=== PATIENT | female | born 1970 | race American Indian/Alaskan Native ===

== ENCOUNTER 2018-10-28 12:03 | Emergency (ER) | payer OTHER ==
--- NOTE | 2018-10-28 12:11 | Emergency Department Report ---
Blank Doc - Documentation Documentation: This is a 48-year-old female that presents with dizziness and near syncope. P atient stated earlier today started to have left sided chest pain and arm pain. Denies any headache or chest pain right now. Denies one sided weakness or blurry vision or visual changes. Exam: neuro exam within normal limits. No slurred speech. Normal strength with no one sided weakness. This initial assessment/diagnostic orders/clinical plan/treatment(s) is/are subject to change based on patient's health status, clinical progression and re- assessment by fellow clinical providers in the ED. Further treatment and workup at subsequent clinical providers discretion. Patient/guardians urged not to elope from the ED as their condition may be serious if not clinically assessed and managed. Initial orders include: 1- Patient sent to MAIN ED for further evaluation and treatment 2- labs 3- EKG
[2018-10-28] MEDS ORDERED: NACL 0.9% 1000 ML 1,000 ML IV ONE (12:23)
--- NOTE | 2018-10-28 12:55 | XRay Report ---
[facility] [address] [place] [address] XRay Report Signed Patient: MARIA C FLORES MR#: [id number] 4 : 1970 Acct:[id number] Age/Sex: 48 / F ADM Date: 10/28/18 Loc: ED Attending Dr: Ordering Physician: LAMINE CULP NP Date of Service: 10/28/18 Procedure(s): XR chest routine 2V Accession Number(s): [id number] cc: LAMINE CULP NP Fluoro Time In Minutes: CHEST 2 VIEWS INDICATION / CLINICAL INFORMATION: Chest Pain. COMPARISON: None available. FINDINGS: SUPPORT DEVICES: None. HEART / MEDIASTINUM: No significant abnormality. LUNGS / PLEURA: No significant pulmonary or pleural abnormality. No pneumothorax. ADDITIONAL FINDINGS: No significant additional findings. IMPRESSION: 1. No acute findings. Signer Name: Pola Tolbert MD Signed: 10/28/2018 12:50 PM Workstation Name: [id number] Transcribed By: REF Dictated By: EMIL WILLIS MD Electronically Authenticated By: EMIL WILLIS MD Signed Date/Time: 10/28/18 1150 DD/ 1150 TD/TT:
[2018-10-28 13:14] LABS: Basophils % (Auto) 0.5 % (0.0-1.8); Eosinophils % (Auto) 0.8 % (0.0-4.3); Hemoglobin 12.2 gm/dl (10.1-14.3); Lymphocytes # (Auto) 2.3 K/mm3 (1.2-5.4); Lymphocytes % (Auto) 40.1 % (13.4-35.0); Mean Corpuscular HGB Conc 34 % (30-34); Mean Corpuscular Volume 92 fl (79-97); Monocytes # (Auto) 0.4 K/mm3 (0.0-0.8); Platelet Count 190 K/mm3 (140-440); Red Blood Count 3.92 M/mm3 (3.65-5.03); Red Cell Distribution Width 13.3 % (13.2-15.2)
[2018-10-28 13:18] LABS: Alanine Aminotransferase 20 units/L (7-56); Albumin 4.3 g/dL (3.9-5); BUN/Creatinine Ratio 14; Blood Urea Nitrogen 11 mg/dL (7-17); Calcium 9.1 mg/dL (8.4-10.2); Hemolysis Index 0
[2018-10-28 13:28] LABS: INR 1.02 (0.87-1.13)
[2018-10-28 13:29] LABS: Partial Thromboplastin Time 33.7 Sec. (24.2-36.6)
--- NOTE | 2018-10-28 13:55 | Emergency Department Report ---
ED Chest Pain HPI - General Chief Complaint: Dizziness Stated Complaint: DIZZY/LEFT SIDE DISCOMFORT Time Seen by Provider: 10/28/18 12:11 Source: patient Mode of arrival: Ambulatory Limitations: No Limitations - History of Present Illness Initial Comments: Patient is a 48-year-old female who is here secondary to episodes of chest discomfort with near syncopal episode. Patient states that when she arrived to work today she states she had 2 distinct episodes where she felt some left-sided chest discomfort with some numbness and tingling to her left hand. Patient states this was followed by some near syncope. Patient states she had a mild headache as well. Patient denies any weakness in arms or legs. Patient states that one month ago while cleaning with a new And a electrode cleaner she did have episodes some dizziness and sinus discomfort.. Patient had no chest pain at that time. With the patient had the dizziness today she states that it was different from the sensation she had when she used a cleaning product however the patient is hoping that her exposure to the cleaning product a few days ago is the cause of why she feels bad today. Again the patient's symptoms are different. Patient states that the dizziness is more consistent with a feeling as though she is going to pass out as opposed to a spinning sensation or vertigo. Patient denies any fevers chills cough cold congestion nausea vomiting at this time. - Related Data Allergies Allergy/AdvReac Type Severity Reaction Status Date / Time No Known Allergies Allergy Unverified 10/28/18 12:11 Heart Score - HEART Score History: Slightly suspicious EKG: Normal Age: 45-65 Risk factors: No known risk factors Troponin: < normal limit HEART Score: 1 ED Review of Systems ROS: Stated complaint: DIZZY/LEFT SIDE DISCOMFORT Other details as noted in HPI Comment: All other systems reviewed and negative ED Past Medical Hx - Past Medical History Previous Medical History?: Yes Additional medical history: rheumatic fever as child. anemia in - Surgical History Past Surgical History?: Yes Additional Surgical History: (2014 for twins) - Social History Smoking Status: Never Smoker Substance Use Type: None ED Physical Exam - General Limitations: No Limitations General appearance: alert, in no apparent distress - Head Head exam: Present: atraumatic, normocephalic - Eye Eye exam: Present: normal appearance, PERRL, EOMI - ENT ENT exam: Present: mucous membranes moist - Neck Neck exam: Present: normal inspection - Respiratory Respiratory exam: Present: normal lung sounds bilaterally. Absent: respiratory distress, wheezes, rales, rhonchi - Cardiovascular Cardiovascular Exam: Present: regular rate, normal rhythm. Absent: systolic murmur, diastolic murmur, rubs, gallop - GI/Abdominal GI/Abdominal exam: Present: soft, normal bowel sounds. Absent: distended, tenderness, guarding, rebound - Extremities Exam Extremities exam: Present: normal inspection - Back Exam Back exam: Present: normal inspection - Neurological Exam Neurological exam: Present: alert, oriented X3, CN II-XII intact, normal gait. Absent: motor sensory deficit - Psychiatric Psychiatric exam: Present: normal affect, normal mood - Skin Skin exam: Present: warm, dry, intact, normal color. Absent: rash ED Course Vital Signs 10/28/18 10/28/18 10/28/18 12:10 13:04 13:14 Temperature 97.6 F Pulse Rate 76 73 Respiratory 18 16 Rate Blood Pressure 147/76 Blood Pressure 134/76 [Left] O2 Sat by Pulse 100 100 Oximetry 10/28/18 10/28/18 10/28/18 13:15 13:16 13:30 Temperature Pulse Rate 73 Respiratory 16 Rate Blood Pressure 142/82 131/75 Blood Pressure 142/82 [Left] O2 Sat by Pulse 100 100 Oximetry 10/28/18 10/28/18 10/28/18 13:45 14:00 14:15 Temperature Pulse Rate Respiratory Rate Blood Pressure 131/75 141/91 141/91 Blood Pressure [Left] O2 Sat by Pulse 100 100 100 Oximetry 10/28/18 10/28/18 10/28/18 14:30 14:45 15:00 Temperature Pulse Rate Respiratory Rate Blood Pressure 135/77 135/77 136/83 Blood Pressure [Left] O2 Sat by Pulse 100 100 Oximetry 10/28/18 10/28/18 15:15 15:30 Temperature Pulse Rate Respiratory Rate Blood Pressure 128/83 125/78 Blood Pressure [Left] O2 Sat by Pulse 100 100 Oximetry - Reevaluation(s) Reevaluation #1: 10/28/18 13:54 Patient's first troponin was negative and her other laboratory studies are essentially normal. Orthostatic vital signs show that she did have some slight lightheadedness from laying to sitting however her vital signs did not change. Cardiology has been consulted to see the patient. DELBERT score - Delbert Score Age > 65: (0) No Aspirin use within the Past 7 Days: (0) No 3 or more CAD Risk Factors: (0) No 2 or more Angina events in past 24 hrs: (0) No Known CAD with more than 50% Stenosis: (0) No Elevated Cardiac Markers: (0) No ST Deviation Greater than 0.5mm: (0) No DELBERT Score: 0 ED Medical Decision Making - Lab Data Result diagrams: 10/28/18 12:40 10/28/18 12:40 Lab Results 10/28/18 10/28/18 10/28/18 Range/Units 12:15 12:40 12:40 WBC 5.7 (4.5-11.0) K/mm3 RBC 3.92 (3.65-5.03) M/mm3 Hgb 12.2 (10.1-14.3) gm/dl Hct 36.0 (30.3-42.9) % MCV 92 (79-97) fl MCH 31 (28-32) pg MCHC 34 (30-34) % RDW 13.3 (13.2-15.2) % Plt Count 190 (140-440) K/mm3 Lymph % (Auto) 40.1 H (13.4-35.0) % Hudspeth % (Auto) 7.0 (0.0-7.3) % Eos % (Auto) 0.8 (0.0-4.3) % Baso % (Auto) 0.5 (0.0-1.8) % Lymph # 2.3 (1.2-5.4) K/mm3 Hudspeth # 0.4 (0.0-0.8) K/mm3 Eos # 0.0 (0.0-0.4) K/mm3 Baso # 0.0 (0.0-0.1) K/mm3 Seg Neutrophils % 51.6 (40.0-70.0) % Seg Neutrophils # 2.9 (1.8-7.7) K/mm3 PT (12.2-14.9) Sec. INR (0.87-1.13) APTT (24.2-36.6) Sec. D-Dimer (0-234) ng/mlDDU Sodium 138 (137-145) mmol/L Potassium 4.4 (3.6-5.0) mmol/L Chloride 102.1 (98-107) mmol/L Carbon Dioxide 26 (22-30) mmol/L Anion Gap 14 mmol/L BUN 11 (7-17) mg/dL Creatinine 0.8 (0.7-1.2) mg/dL Estimated GFR > 60 ml/min BUN/Creatinine Ratio 14 % Glucose 102 H (65-100) mg/dL POC Glucose 90 (70-105) Calcium 9.1 (8.4-10.2) mg/dL Total Bilirubin 0.20 (0.1-1.2) mg/dL AST 18 (5-40) units/L ALT 20 (7-56) units/L Alkaline Phosphatase 32 L (35-129) units/L Troponin T (0.00-0.029) ng/mL Total Protein 7.7 (6.3-8.2) g/dL Albumin 4.3 (3.9-5) g/dL Albumin/Globulin Ratio 1.3 % HCG, Qual (Negative) 10/28/18 10/28/18 10/28/18 Range/Units 12:40 12:40 12:40 WBC (4.5-11.0) K/mm3 RBC (3.65-5.03) M/mm3 Hgb (10.1-14.3) gm/dl Hct (30.3-42.9) % MCV (79-97) fl MCH (28-32) pg MCHC (30-34) % RDW (13.2-15.2) % Plt Count (140-440) K/mm3 Lymph % (Auto) (13.4-35.0) % Hudspeth % (Auto) (0.0-7.3) % Eos % (Auto) (0.0-4.3) % Baso % (Auto) (0.0-1.8) % Lymph # (1.2-5.4) K/mm3 Hudspeth # (0.0-0.8) K/mm3 Eos # (0.0-0.4) K/mm3 Baso # (0.0-0.1) K/mm3 Seg Neutrophils % (40.0-70.0) % Seg Neutrophils # (1.8-7.7) K/mm3 PT 13.1 (12.2-14.9) Sec. INR 1.02 (0.87-1.13) APTT 33.7 (24.2-36.6) Sec. D-Dimer (0-234) ng/mlDDU Sodium (137-145) mmol/L Potassium (3.6-5.0) mmol/L Chloride (98-107) mmol/L Carbon Dioxide (22-30) mmol/L Anion Gap mmol/L BUN (7-17) mg/dL Creatinine (0.7-1.2) mg/dL Estimated GFR ml/min BUN/Creatinine Ratio % Glucose (65-100) mg/dL POC Glucose (70-105) Calcium (8.4-10.2) mg/dL Total Bilirubin (0.1-1.2) mg/dL AST (5-40) units/L ALT (7-56) units/L Alkaline Phosphatase (35-129) units/L Troponin T < 0.010 (0.00-0.029) ng/mL Total Protein (6.3-8.2) g/dL Albumin (3.9-5) g/dL Albumin/Globulin Ratio % HCG, Qual Negative (Negative) 10/28/18 Range/Units 12:40 WBC (4.5-11.0) K/mm3 RBC (3.65-5.03) M/mm3 Hgb (10.1-14.3) gm/dl Hct (30.3-42.9) % MCV (79-97) fl MCH (28-32) pg MCHC (30-34) % RDW (13.2-15.2) % Plt Count (140-440) K/mm3 Lymph % (Auto) (13.4-35.0) % Hudspeth % (Auto) (0.0-7.3) % Eos % (Auto) (0.0-4.3) % Baso % (Auto) (0.0-1.8) % Lymph # (1.2-5.4) K/mm3 Hudspeth # (0.0-0.8) K/mm3 Eos # (0.0-0.4) K/mm3 Baso # (0.0-0.1) K/mm3 Seg Neutrophils % (40.0-70.0) % Seg Neutrophils # (1.8-7.7) K/mm3 PT (12.2-14.9) Sec. INR (0.87-1.13) APTT (24.2-36.6) Sec. D-Dimer 203.29 (0-234) ng/mlDDU Sodium (137-145) mmol/L Potassium (3.6-5.0) mmol/L Chloride (98-107) mmol/L Carbon Dioxide (22-30) mmol/L Anion Gap mmol/L BUN (7-17) mg/dL Creatinine (0.7-1.2) mg/dL Estimated GFR ml/min BUN/Creatinine Ratio % Glucose (65-100) mg/dL POC Glucose (70-105) Calcium (8.4-10.2) mg/dL Total Bilirubin (0.1-1.2) mg/dL AST (5-40) units/L ALT (7-56) units/L Alkaline Phosphatase (35-129) units/L Troponin T (0.00-0.029) ng/mL Total Protein (6.3-8.2) g/dL Albumin (3.9-5) g/dL Albumin/Globulin Ratio % HCG, Qual (Negative) - EKG Data -: EKG Interpreted by [place] EKG shows normal: sinus rhythm, axis, intervals, QRS complexes, ST-T waves Rate: normal - EKG Data Interpretation: normal EKG - Radiology Data Referring Physician: BRIGETTE BARBOSA Patient Name: MARIA C FLORES Date of : 1970 Sex: Female Report Date: 2018-10-28 Report Status: Finalized Findings [facility] [address] [place] [address] Cat Scan Report Signed Patient: MARIA C FLORES MR#: [id number] 4 : 1970 Acct:[id number] Age/Sex: 48 / F ADM Date: 10/28/18 Loc: ED Attending Dr: Ordering Physician: BRIGETTE BARBOSA MD Date of Service: 10/28/18 Procedure(s): CT head/brain wo con Accession Number(s): [id number] cc: BRIGETTE BARBOSA MD CT HEAD WITHOUT CONTRAST INDICATION / CLINICAL INFORMATION: Near syncopal episode. TECHNIQUE: All CT scans at this location are performed using CT dose reduction for ALARA by means of automated exposure control. COMPARISON: None available. LIMITATIONS: Coronal and sagittal reconstructions are not available for evaluation of the time of this report. FINDINGS: HEMORRHAGE: No evidence of intracranial hemorrhage or extra-axial fluid collection. EXTRA-AXIAL SPACES: Cortical sulci, sylvian fissures and basilar cisterns have an unremarkable appearance. VENTRICULAR SYSTEM: Developmental asymmetry of the lateral ventricles is noted, right larger than left. The ventricular system is of otherwise normal size and configuration. CEREBRAL PARENCHYMA: No areas of abnormal brain parenchymal attenuation are identified. There is no indication of recent infarction. MIDLINE SHIFT OR HERNIATION: There is no mass effect. CEREBELLUM / BRAINSTEM: Brainstem and cerebellum have an unremarkable appearance. INTRACRANIAL VESSELS:No abnormalities are identified on this noncontrast head CT. ORBITS: visualized portions of the orbits have an unremarkable appearance. SOFT TISSUES of HEAD: No significant abnormality. CALVARIUM: Evaluation of bone windows reveals no abnormalities. PARANASAL SINUSES / MASTOID AIR CELLS: Paranasal sinuses are free from inflammatory mucosal disease. Mastoid air cells are normally pneumatized. ADDITIONAL FINDINGS: None. IMPRESSION: 1. No abnormality on head CT without contrast. Signer Name: Kenn Alfonso MD Signed: 10/28/2018 2:21 PM Workstation Name: [id number] Transcribed By: REF Dictated By: EMIL WILLIS MD Electronically Authenticated By: EMIL WILLIS MD Signed Date/Time: 10/28/18 1421 DD/ 1410 TD/TT: [facility] [address] [place] [address] XRay Report Signed Patient: MARIA C FLORES MR#: [id number] 4 : 1970 Acct:[id number] Age/Sex: 48 / F ADM Date: 10/28/18 Loc: ED Attending Dr: Ordering Physician: LAMINE CULP NP Date of Service: 10/28/18 Procedure(s): XR chest routine 2V Accession Number(s): [id number] cc: LAMINE CULP NP Fluoro Time In Minutes: CHEST 2 VIEWS INDICATION / CLINICAL INFORMATION: Chest Pain. COMPARISON: None available. FINDINGS: SUPPORT DEVICES: None. HEART / MEDIASTINUM: No significant abnormality. LUNGS / PLEURA: No significant pulmonary or pleural abnormality. No pneumothorax. ADDITIONAL FINDINGS: No significant additional findings. IMPRESSION: 1. No acute findings. Signer Name: Pola Tolbert MD Signed: 10/28/2018 11:50 AM Workstation Name: [id number] Transcribed By: REF Dictated By: EMIL WILLIS MD Electronically Authenticated By: EMIL WILLIS MD Signed Date/Time: 10/28/18 115 DD/ 49 TD/TT: - Medical Decision Making Patient is a 48-year-old female who is presenting status post episode of chest discomfort and near syncope. Patient is feeling much improved currently. Patient has never experienced these symptoms before. Patient states she has had PVCs in the past however that felt much different. Patient has had 2 negative troponins, negative d-dimer, unremarkable chest x-ray and EKG today in our emergency department. Patient is in sinus rhythm however it is unknown whether during the episode when she was feeling near syncopal and having palpitations if she was having a dysrhythmia. Patient is to take a full dose aspirin daily and follow with cardiology who has seen the patient in the emergency department and will see her is now patient for possible stress test and echocardiogram. Critical care attestation.: If time is entered above; I have spent that time in minutes in the direct care of this critically ill patient, excluding procedure time. ED Disposition Clinical Impression: Acute chest pain, Palpitations, Near syncope Disposition: -01 TO HOME OR SELFCARE Is pt being admited?: No Does the pt Need Aspirin: No Condition: Stable Instructions: Chest Pain (ED), Near Syncope (ED), Aspirin (By mouth) Referrals: VENTURA PRATT MD [Staff Physician] - 3-5 Days Time of Disposition: 15:59
--- NOTE | 2018-10-28 14:15 | Consultation ---
History of Present Illness Consult date: 10/28/18 Requesting physician: BRIGETTE BARBOSA History of present illness: The patient is a 48-year-old female with a past medical history of rheumatic fever as a child (no abnormalities on serial echos thus far) and PACs. 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 She presented with c/o chest discomfort and near syncope. Pt reports that over the weekend, she believes she had an allergic reaction to some household cleaning agents. She noted some dizziness and sinus congestion after using a new cleaning agent at home and took some Zyrtec and her symptoms improved. Patient states that while at work this morning, she developed some left-sided chest discomfort with some numbness and tingling to her left hand which was associated with near syncope. Patient states she had a mild headache as well. This episode lasted for approx 2-3 minutes and she decided to be ev aluated. She was being driven from her office to [employer] ED when she experienced another episode of chest discomfort and near syncope which lasted again for only a couple of minutes. Pt states that her episodes today were different from the sensation she had when she used the new cleaning product. Pt denies any SOB, palpitations, n/v, diaphoresis or syncope. On evaluation, she states her symptoms are currently resolved. Past History Past Medical History: other (rheumatic fever as a child) Social history: no significant social history Medications and Allergies Allergies Allergy/AdvReac Type Severity Reaction Status Date / Time No Known Allergies Allergy Unverified 10/28/18 12:11 Review of Systems Constitutional: no weight loss, no weight gain, no fever, no chills, no sweats Ears, nose, mouth and throat: nasal congestion, no ear pain, no nose pain, no sinus pressure, no sinus pain Cardiovascular: chest pain, lightheadedness, no orthopnea, no palpitations, no rapid/irregular heart beat, no edema, no syncope, no shortness of breath, no dyspnea on exertion, no paroxysmal nocturnal dyspnea, no high blood pressure, no leg edema, no decreased exercise tolerance Respiratory: no cough, no shortness of breath, no dyspnea on exertion, no congestion, no wheezing, no pain on inspiration Gastrointestinal: no abdominal pain, no nausea, no vomiting, no diarrhea, no constipation, no change in bowel habits Genitourinary Female: no pelvic pain, no flank pain, no dysuria, no urinary frequency, no urgency Musculoskeletal: no neck stiffness, no neck pain, no shooting arm pain, no arm numbness/tingling, no low back pain, no shooting leg pain Integumentary: no rash, no pruritis, no redness, no sores, no wounds Neurological: no head injury, no paralysis, no weakness, no parathesias, no numbness, no tingling, no seizures, no syncope Psychiatric: no anxiety Endocrine: no cold intolerance, no heat intolerance Hematologic/Lymphatic: no easy bruising, no easy bleeding Allergic/Immunologic: no urticaria, no wheezing Physical Examination Vital Signs Temp Pulse Resp BP Pulse Ox 97.6 F 76 18 147/76 100 10/28/18 12:10 10/28/18 12:10 10/28/18 12:10 10/28/18 12:10 10/28/18 12:10 General appearance: no acute distress HEENT: Positive: PERRL, Normocephaly, Mucus Membranes Moist Neck: Positive: neck supple, trachea midline Cardiac: Positive: Reg Rate and Rhythm, S1/S2 Lungs: Positive: clear to auscultation Neuro: Positive: Grossly Intact Abdomen: Positive: Soft. Negative: Tender Skin: Negative: Rash, Wound Musculoskeletal: No Pain Extremities: Absent: edema Results 10/28/18 12:40 10/28/18 12:40 Cardiac Enzymes 10/28/18 Range/Units 12:40 AST 18 (5-40) units/L Coagulation 10/28/18 Range/Units 12:40 PT 13.1 (12.2-14.9) Sec. INR 1.02 (0.87-1.13) APTT 33.7 (24.2-36.6) Sec. CBC 10/28/18 Range/Units 12:40 WBC 5.7 (4.5-11.0) K/mm3 RBC 3.92 (3.65-5.03) M/mm3 Hgb 12.2 (10.1-14.3) gm/dl Hct 36.0 (30.3-42.9) % Plt Count 190 (140-440) K/mm3 Lymph # 2.3 (1.2-5.4) K/mm3 Ellis # 0.4 (0.0-0.8) K/mm3 Eos # 0.0 (0.0-0.4) K/mm3 Baso # 0.0 (0.0-0.1) K/mm3 Comprehensive Metabolic Panel 10/28/18 Range/Units 12:40 Sodium 138 (137-145) mmol/L Potassium 4.4 (3.6-5.0) mmol/L Chloride 102.1 (98-107) mmol/L Carbon Dioxide 26 (22-30) mmol/L BUN 11 (7-17) mg/dL Creatinine 0.8 (0.7-1.2) mg/dL Glucose 102 H (65-100) mg/dL Calcium 9.1 (8.4-10.2) mg/dL AST 18 (5-40) units/L ALT 20 (7-56) units/L Alkaline Phosphatase 32 L (35-129) units/L Total Protein 7.7 (6.3-8.2) g/dL Albumin 4.3 (3.9-5) g/dL - Imaging and Cardiology EKG: report reviewed, image reviewed EKG interpretations - Telemetry EKG Rhythm: Sinus Rhythm - EKG Sinus rhythms and dysrhythmias: sinus rhythm Assessment and Plan Pt presented with c/o near syncope and chest comfort, symptoms are currently resolved. AMI ruled out. DDimer is pending. If DDimer is negative, pt may discharge home from cardiology standpoint. Will plan for OP treadmill stress test and echo and possibly Holter study if symptoms reoccur. Assessment and plan reviewed with pt and she is agreeable to this plan. Recommend follow up in our office with Dr. Jeffers within 1-2 weeks ([phone]). The patient has been seen in conjunction with Dr. Jeffers who agrees with the assessment and plan of care. - Patient Problems (1) Near syncope Current Visit: Yes Status: Resolved (2) Chest pain Current Visit: Yes Status: Resolved (3) History of rheumatic fever as a child Current Visit: Yes Status: Suspected
--- NOTE | 2018-10-28 15:26 | Cat Scan Report ---
CT HEAD WITHOUT CONTRAST INDICATION / CLINICAL INFORMATION: Near syncopal episode. TECHNIQUE: All CT scans at this location are performed using CT dose reduction for ALARA by means of automated e xposure control. COMPARISON: None available. LIMITATIONS: Coronal and sagittal reconstructions are not available for evaluation of the time of thi s report. FINDINGS: HEMORRHAGE: No evidence of intracranial hemorrhage or extra-axial fluid collection. EXTRA-AXIAL SPACES: Cortical sulci, sylvian fissures and basilar cisterns have an unremarkable appear ance. VENTRICULAR SYSTEM: Developmental asymmetry of the lateral ventricles is noted, right larger than lef t. The ventricular system is of otherwise normal size and configuration. CEREBRAL PARENCHYMA: No areas of abnormal brain parenchymal attenuation are identified. There is no i ndication of recent infarction. MIDLINE SHIFT OR HERNIATION: There is no mass effect. CEREBELLUM / BRAINSTEM: Brainstem and cerebellum have an unremarkable appearance. INTRACRANIAL VESSELS:No abnormalities are identified on this noncontrast head CT. ORBITS: visualized portions of the orbits have an unremarkable appearance. SOFT TISSUES of HEAD: No significant abnormality. CALVARIUM: Evaluation of bone windows reveals no abnormalities. PARANASAL SINUSES / MASTOID AIR CELLS: Paranasal sinuses are free from inflammatory mucosal disease. Mastoid air cells are normally pneumatized. ADDITIONAL FINDINGS: None. IMPRESSION: 1. No abnormality on head CT without contrast. Signer Name: Kenn Alfonso MD Signed: 10/28/2018 3:21 PM Workstation Name: [id number]
[2018-10-28 15:40] VITALS: BP 125/78
== END 2018-10-28 16:11 | disposition home or self-care (01) ==
LOC: ED 12:03
DX: R07.89 Other chest pain (principal); R55 Syncope and collapse; R00.2 Palpitations; R20.2 Paresthesia of skin; R42 Dizziness and giddiness
CPT/HCPCS: 36415; 70450; 71046; 80053; 82962; 84484; 84703; 85025; 85379; 85610; 85730; 93005; 93010; 96360; 99285; J7030